=== PATIENT | male | born 2000 | race African-American/Black ===

== ENCOUNTER 2023-07-23 11:49 | Emergency (ER) | payer SELFPAY | END 2023-07-23 14:03 | disposition home or self-care (01) | LOC: MW.ED 11:49 | DX: S03.42XA Sprain of jaw, left side, initial encounter (principal); F17.210 Nicotine dependence, cigarettes, uncomplicated; Z75.8 Other problems related to medical facilities and other health care; Y04.8XXA Assault by other bodily force, initial encounter | CPT/HCPCS: 70486; 70486-26; 99283 ==